=== PATIENT | female | born 1960 | race Caucasian/White ===

== ENCOUNTER 2017-12-23 17:55 | Inpatient (IN) | payer OTHER, MEDICARE ==
[~2017-12-23] VITALS: Ht 157.5 cm; Wt 58.5 kg
[2017-12-23] MEDS ORDERED: MORPHINE SULFATE 4 MG/ML VIAL. IV ONE ×2 (19:45→21:30)
[2017-12-23 20:00] LABS: CALCIUM 9.1 mg/dL (8.5-10.1); CREATININE 0.7 mg/dL (0.6-1.0); GFR 85.6; POTASSIUM 4.4 mmol/L (3.5-5.1)
[2017-12-23 20:05] LABS: ALBUMIN 4.1 g/dL (3.4-5.0); DIRECT BILIRUBIN 0.1 mg/dL (0.0-0.2); TOTAL BILIRUBIN 0.7 mg/dL (0.2-1.0); TOTAL PROTEIN 7.2 g/dL (6.4-8.2)
[2017-12-23] MEDS ORDERED: CONTRAST GIVEN. MC PRN (20:15)
[2017-12-23] MEDS ORDERED: IOHEXOL 300 MG/ML 100ML VIAL. IV ONE (20:30)
[2017-12-23 21:04] LABS: BASO # 0.1 x10^3/uL (0.0-0.2); BASO % 1 % (0-3); EOS # 0.1 x10^3/uL (0.0-0.7); EOS % 1 % (0-3); HEMATOCRIT 40.7 % (36.0-47.0); LYMPH # 2.7 x10^3/uL (1.0-4.8); LYMPH % 22 % (24-48); MEAN CORPUSCULAR HEMOGLOBIN 33 pg (25-35); MEAN CORPUSCULAR HGB CONC 35 g/dL (31-37); MEAN CORPUSCULAR VOLUME 96 fL (79-100); MONO # 0.9 x10^3/uL (0.0-1.1); MONO % 7 % (0-9); NEUT # 8.5 x10^3uL (1.8-7.7); NEUT % 70 % (31-73); PLATELET COUNT 256 x10^3/uL (140-400); RED BLOOD COUNT 4.26 x10^6/uL (3.50-5.40); RED CELL DISTRIBUTION WIDTH 13.5 % (11.5-14.5); WHITE BLOOD COUNT 12.2 x10^3/uL (4.0-11.0)
[2017-12-23 21:05] LABS: BILIRUBIN,URINE NEGATIVE (NEG); CLARITY,URINE CLEAR; COLOR,URINE YELLOW; NITRITE,URINE NEGATIVE (NEG); PH,URINE 6.5; PROTEIN,URINE NEGATIVE (NEG-TRACE); UROBILINOGEN,URINE 0.2 mg/dL (0.2 mg/dL)
--- NOTE | 2017-12-23 21:06 | RAD ---
PQRS Compliance statement: One or more of the following individualized dose reduction techniques were utilized for this examination: 1. Automated exposure control. 2. Adjustment of the mA and/or kV according to patient size. 3. Use of iterative reconstruction technique. Indication:severe upper abd pain since yesterday TECHNIQUE: CT abdomen and pelvis with IV contrast with multiplanar reformats. COMPARISON: None FINDINGS: Heart is normal in size. No pericardial or pleural effusion. Clear lung bases. Liver, spleen, gallbladder, pancreas, adrenals and kidneys are within normal limits. No retroperitoneal or pelvic adenopathy. Trace amount of free pelvic fluid. Diffusely dilated small bowel loops are seen with air-fluid levels. No pneumatosis intestinalis or pneumoperitoneum. No discrete transition point is seen. Anteverted uterus. Urinary bladder within normal limits. Distal colon is decompressed. No suspicious bony lesion. IMPRESSION: Diffusely dilated small bowel loops with air-fluid levels compatible with small bowel obstruction or ileus without discrete transition point. Electronically signed by: Antoni Casanova DO (12/23/2017 9:02 PM) [id number]
[2017-12-23 21:09] LABS: BACTERIA,URINE MOD /HPF (0-FEW); SQUAMOUS EPITHELIAL CELL,UR MOD /LPF
[2017-12-23 21:10] LABS: RBC,URINE OCC /HPF (0-2)
[2017-12-23] MEDS ORDERED: ONDANSETRON PF 4 MG/2 ML VIAL. IV PRN (21:45)
[2017-12-23] MEDS ORDERED: IV RINGERS,LACTATED 1000ML 1,000 ML IV ONE (21:45)
[2017-12-23] MEDS: MORPHINE SULFATE 10 MG/ML VIAL. IV PRN (23:08)
[2017-12-23 23:40] VITALS: BP 171/77
--- NOTE | 2017-12-23 23:41 | PHYS DOC ---
Past Medical History Past Medical History: Anxiety, Fibromyalgia Past Surgical History: Other Additional Past Surgical Histo: back Alcohol Use: Occasionally Drug Use: None Adult General Chief Complaint Chief Complaint: ABDOMINAL PAIN HPI HPI Patient is a 57 year old female who presents with abdominal pain. The patient complains of abdominal pain and some distention that started 2-3 days earlier. She describes that she felt a lot of bloating and diffuse abdominal pain. This was followed by multiple episodes of diarrhea which were described to brown and watery but nonbloody. Today, her diarrhea resolved and she did have a normal bowel movement. Overall, her pain symptoms have improved today and she did tolerate a very small amount of solid food. The patient is visiting this area from [facility]. She is scheduled to travel back home in the next couple of days. She primarily came to the ER to make sure she was safe to begin this journey. She has only a surgical history of hysterectomy 2 which was about 30 years earlier. Review of Systems Review of Systems Constitutional: Denies fever or chills Eyes: Denies change in visual acuity HENT: Denies nasal congestion Respiratory: Denies cough or shortness of breath Cardiovascular: No additional information not addressed in HPI GI: as documented above : Denies dysuria or hematuria Musculoskeletal: Denies back pain Integument: Denies rash or skin lesions Neurologic: Denies headache, focal weakness Endocrine: Denies polyuria or polydipsia All other systems were reviewed and found to be within normal limits, except as documented in this note. Current Medications Current Medications Current Medications Medications (Trade) Dose Ordered Sig/Avelina Start Time Stop Time Status Last Admin Dose Admin Info (CONTRAST GIVEN -- Rx MONITORING) 1 each PRN DAILY PRN 12/23/17 20:15 12/25/17 20:14 Iohexol (Omnipaque 300 Mg/ml) 75 ml 1X ONCE 12/23/17 20:30 12/23/17 20:31 DC 12/23/17 20:31 75 ML Morphine Sulfate (Morphine Sulfate) 4 mg 1X ONCE 12/23/17 21:30 12/23/17 21:31 DC 12/23/17 21:17 4 MG Allergies Allergies Allergies Coded Allergies Type Severity Reaction Last Updated Verified codeine Allergy Intermediate Nausea 12/23/17 Yes Physical Exam Physical Exam Constitutional: Well developed, well nourished, no acute distress, non-toxic HENT: Normocephalic, atraumatic, bilateral external ears normal, oropharynx moist Eyes: PERRLA, EOMI, conjunctiva normal Neck: Normal range of motion Cardiovascular:Heart rate regular rhythm, no murmur Lungs & Thorax: Bilateral breath sounds clear to auscultation Abdomen: abdomen is mildly distended and diffusely TTP but no guarding or rebound tenderness Skin: Warm, dry, no erythema Back: No tenderness, no CVA tenderness Extremities: No edema Neurologic: Alert and oriented X 3 Psychologic: Affect normal Current Patient Data Vital Signs Vital Signs Date Time Temp Pulse Resp B/P (MAP) Pulse Ox O2 Delivery O2 Flow Rate FiO2 12/23/17 21:17 18 98 Room Air 12/23/17 20:05 87 167/92 (117) 12/23/17 19:06 98.4 98.4 Lab Values Laboratory Tests Test 12/23/17 19:01 12/23/17 19:35 Urine Collection Type Unknown Urine Color Yellow Urine Clarity Clear Urine pH 6.5 Urine Specific [place] 1.010 Urine Protein Negative mg/dL (NEG-TRACE) Urine Glucose (UA) Negative mg/dL (NEG) Urine Ketones (Stick) Negative mg/dL (NEG) Urine Blood Trace (NEG) Urine Nitrite Negative (NEG) Urine Bilirubin Negative (NEG) Urine Urobilinogen Dipstick 0.2 mg/dL (0.2 mg/dL) Urine Leukocyte Esterase Small (NEG) Urine RBC Occ /HPF (0-2) Urine WBC 1-4 /HPF (0-4) Urine Squamous Epithelial Cells Mod /LPF Urine Bacteria Mod /HPF (0-FEW) White Blood Count 12.2 x10^3/uL (4.0-11.0) H Red Blood Count 4.26 x10^6/uL (3.50-5.40) Hemoglobin 14.0 g/dL (12.0-15.5) Hematocrit 40.7 % (36.0-47.0) Mean Corpuscular Volume 96 fL (79-100) Mean Corpuscular Hemoglobin 33 pg (25-35) Mean Corpuscular Hemoglobin Concent 35 g/dL (31-37) Red Cell Distribution Width 13.5 % (11.5-14.5) Platelet Count 256 x10^3/uL (140-400) Neutrophils (%) (Auto) 70 % (31-73) Lymphocytes (%) (Auto) 22 % (24-48) L Monocytes (%) (Auto) 7 % (0-9) Eosinophils (%) (Auto) 1 % (0-3) Basophils (%) (Auto) 1 % (0-3) Neutrophils # (Auto) 8.5 x10^3uL (1.8-7.7) H Lymphocytes # (Auto) 2.7 x10^3/uL (1.0-4.8) Monocytes # (Auto) 0.9 x10^3/uL (0.0-1.1) Eosinophils # (Auto) 0.1 x10^3/uL (0.0-0.7) Basophils # (Auto) 0.1 x10^3/uL (0.0-0.2) Sodium Level 134 mmol/L (136-145) L Potassium Level 4.4 mmol/L (3.5-5.1) Chloride Level 102 mmol/L (98-107) Carbon Dioxide Level 25 mmol/L (21-32) Anion Gap 7 (6-14) Blood Urea Nitrogen 16 mg/dL (7-20) Creatinine 0.7 mg/dL (0.6-1.0) Estimated GFR (Cockcroft-Gault) 85.6 Glucose Level 100 mg/dL (70-99) H Calcium Level 9.1 mg/dL (8.5-10.1) Total Bilirubin 0.7 mg/dL (0.2-1.0) Direct Bilirubin 0.1 mg/dL (0.0-0.2) Aspartate Amino Transferase (AST) 14 U/L (15-37) L Alanine Aminotransferase (ALT) 19 U/L (14-59) Alkaline Phosphatase 55 U/L (46-116) Total Protein 7.2 g/dL (6.4-8.2) Albumin 4.1 g/dL (3.4-5.0) Lipase 104 U/L (73-393) Laboratory Tests 12/23/17 19:35 Laboratory Tests 12/23/17 19:35 EKG EKG [] Radiology/Procedures Radiology/Procedures FINDINGS: Heart is normal in size. No pericardial or pleural effusion. Clear lung bases. Liver, spleen, gallbladder, pancreas, adrenals and kidneys are within normal limits. No retroperitoneal or pelvic adenopathy. Trace amount of free pelvic fluid. Diffusely dilated small bowel loops are seen with air-fluid levels. No pneumatosis intestinalis or pneumoperitoneum. No discrete transition point is seen. Anteverted uterus. Urinary bladder within normal limits. Distal colon is decompressed. No suspicious bony lesion. IMPRESSION: Diffusely dilated small bowel loops with air-fluid levels compatible with small bowel obstruction or ileus without discrete transition point. Course & Med Decision Making Course & Med Decision Making Pertinent Labs and Imaging studies reviewed. (See chart for details) Patient is evaluated in the emergency department for abdominal pain. Her history of present illness and presentation are suspicious for bowel obstruction. Standard abdominal pain workup is ordered including CT scan. 22:00: CT scan is returned and verifies suspected diagnosis. The patient has had no vomiting or severe symptoms during the ED course. No NG tube is placed for this reason. Plan will be to admit the patient and keep her as in by mouth status. IV fluids are started. Bridge orders are placed. Consult for GI is also placed. The patient at this time does not have a surgical abdomen. All results are reviewed and discussed with the patient and all of her questions are answered. She is agreeable to the plan of care. I did also discuss this patient with Dr. Eaton who was agreeable to admission. Dragon Disclaimer Dragon Disclaimer This electronic medical record was generated, in whole or in part, using a voice recognition dictation system. Departure Departure Referrals: UNKNOWN PCP NAME (PCP) SAIMA LEE DO Dec 23, 2017 23:41
[2017-12-24] MEDS ORDERED: ALPR1TAB6 PO (00:59)
[2017-12-24 03:00] VITALS: BP 150/79
[2017-12-24] MEDS: MORPHINE SULFATE 10 MG/ML VIAL. IV PRN ×2 (03:23→06:01)
[2017-12-24 04:10] LABS: BASO % 0 % (0-3); EOS # 0.1 x10^3/uL (0.0-0.7); EOS % 2 % (0-3); HEMATOCRIT 35.7 % (36.0-47.0); HEMOGLOBIN 12.5 g/dL (12.0-15.5); LYMPH # 2.2 x10^3/uL (1.0-4.8); LYMPH % 28 % (24-48); MEAN CORPUSCULAR HEMOGLOBIN 33 pg (25-35); MEAN CORPUSCULAR HGB CONC 35 g/dL (31-37); MEAN CORPUSCULAR VOLUME 95 fL (79-100); MONO # 0.5 x10^3/uL (0.0-1.1); MONO % 6 % (0-9); NEUT # 5.2 x10^3uL (1.8-7.7); NEUT % 64 % (31-73); PLATELET COUNT 202 x10^3/uL (140-400); RED BLOOD COUNT 3.76 x10^6/uL (3.50-5.40); RED CELL DISTRIBUTION WIDTH 13.5 % (11.5-14.5)
[2017-12-24 04:30] LABS: ALBUMIN 3.4 g/dL (3.4-5.0); ALBUMIN/GLOBULIN RATIO 1.2 (1.0-1.7); CALCIUM 8.1 mg/dL (8.5-10.1); CREATININE 0.7 mg/dL (0.6-1.0); GFR 85.6; POTASSIUM 3.9 mmol/L (3.5-5.1); TOTAL BILIRUBIN 0.6 mg/dL (0.2-1.0); TOTAL PROTEIN 6.2 g/dL (6.4-8.2)
[2017-12-24 07:00] VITALS: BP 134/70
--- NOTE | 2017-12-24 09:15 | PDOC2 ---
GI CONSULT Reason For Consult: SBO HPI: HPI: 57 y/o female from [facility], traveled to [place] to visit [id number], then traveled to area to visit nephew. While in [place] on Friday, awoke during the night, noted abd bloating/firmness. Later that day had watery diarrhea and took Imodium. Then had lower abdominal pain that radiated upwards. Pain persisted. Then had a normal stool yesterday before coming to the ER. Wants to make sure she's safe to travel back to [place] on Friday. Since admission, has been passing gas and pain/bloating has improved. No n/v, dysphagia, reflux/ heartburn, hematochezia, melena, or weight loss. Denies ingestion of questionable food or sick contacts. No fevers/chills/sweats. No previous EGD. Has had two colonoscopies - the first w/ pre-cancerous polyps, the second (~2 years ago) without. No GB or pancreas history. No h/o obstruction. Was told at one point had Hep C, then had further investigation at and was told she didn't have Hep C - says has also been checked since then w/ negative results. CT shows SBO vs ileus. PMH: PMH: anxiety, fibromyalgia, colon polyps, cervical fusion, x 2 FH: Family History: Cancer (brother - colon, sister - cervical) Social History: Smoke: <1 pack per day ALCOHOL: other (on vacations) Drugs: None ROS: GEN: Denies fevers, chills, sweats HEENT: Denies blurred vision, sore throat CV: Denies chest pain RESP: Denies shortness of air, cough GI: Per HPI : Denies hematuria, dysuria ENDO: Denies weight changes NEURO: Denies confusion, dizziness MSK: Denies weakness, joint pain/swelling SKIN: Denies jaundice, pruritus Vitals: Vitals: Vital Signs Date Time Temp Pulse Resp B/P (MAP) Pulse Ox O2 Delivery O2 Flow Rate FiO2 12/24/17 07:28 16 96 Room Air 12/24/17 07:00 98.7 68 134/70 (91) 98.7 Labs: Labs: Laboratory Tests Test 12/23/17 19:01 12/23/17 19:35 12/24/17 03:00 Urine Collection Type Unknown Urine Color Yellow Urine Clarity Clear Urine pH 6.5 Urine Specific [place] 1.010 Urine Protein Negative mg/dL (NEG-TRACE) Urine Glucose (UA) Negative mg/dL (NEG) Urine Ketones (Stick) Negative mg/dL (NEG) Urine Blood Trace (NEG) Urine Nitrite Negative (NEG) Urine Bilirubin Negative (NEG) Urine Urobilinogen Dipstick 0.2 mg/dL (0.2 mg/dL) Urine Leukocyte Esterase Small (NEG) Urine RBC Occ /HPF (0-2) Urine WBC 1-4 /HPF (0-4) Urine Squamous Epithelial Cells Mod /LPF Urine Bacteria Mod /HPF (0-FEW) White Blood Count 12.2 x10^3/uL (4.0-11.0) 8.0 x10^3/uL (4.0-11.0) Red Blood Count 4.26 x10^6/uL (3.50-5.40) 3.76 x10^6/uL (3.50-5.40) Hemoglobin 14.0 g/dL (12.0-15.5) 12.5 g/dL (12.0-15.5) Hematocrit 40.7 % (36.0-47.0) 35.7 % (36.0-47.0) Mean Corpuscular Volume 96 fL (79-100) 95 fL (79-100) Mean Corpuscular Hemoglobin 33 pg (25-35) 33 pg (25-35) Mean Corpuscular Hemoglobin Concent 35 g/dL (31-37) 35 g/dL (31-37) Red Cell Distribution Width 13.5 % (11.5-14.5) 13.5 % (11.5-14.5) Platelet Count 256 x10^3/uL (140-400) 202 x10^3/uL (140-400) Neutrophils (%) (Auto) 70 % (31-73) 64 % (31-73) Lymphocytes (%) (Auto) 22 % (24-48) 28 % (24-48) Monocytes (%) (Auto) 7 % (0-9) 6 % (0-9) Eosinophils (%) (Auto) 1 % (0-3) 2 % (0-3) Basophils (%) (Auto) 1 % (0-3) 0 % (0-3) Neutrophils # (Auto) 8.5 x10^3uL (1.8-7.7) 5.2 x10^3uL (1.8-7.7) Lymphocytes # (Auto) 2.7 x10^3/uL (1.0-4.8) 2.2 x10^3/uL (1.0-4.8) Monocytes # (Auto) 0.9 x10^3/uL (0.0-1.1) 0.5 x10^3/uL (0.0-1.1) Eosinophils # (Auto) 0.1 x10^3/uL (0.0-0.7) 0.1 x10^3/uL (0.0-0.7) Basophils # (Auto) 0.1 x10^3/uL (0.0-0.2) 0.0 x10^3/uL (0.0-0.2) Sodium Level 134 mmol/L (136-145) 139 mmol/L (136-145) Potassium Level 4.4 mmol/L (3.5-5.1) 3.9 mmol/L (3.5-5.1) Chloride Level 102 mmol/L (98-107) 106 mmol/L (98-107) Carbon Dioxide Level 25 mmol/L (21-32) 27 mmol/L (21-32) Anion Gap 7 (6-14) 6 (6-14) Blood Urea Nitrogen 16 mg/dL (7-20) 13 mg/dL (7-20) Creatinine 0.7 mg/dL (0.6-1.0) 0.7 mg/dL (0.6-1.0) Estimated GFR (Cockcroft-Gault) 85.6 85.6 Glucose Level 100 mg/dL (70-99) 95 mg/dL (70-99) Calcium Level 9.1 mg/dL (8.5-10.1) 8.1 mg/dL (8.5-10.1) Total Bilirubin 0.7 mg/dL (0.2-1.0) 0.6 mg/dL (0.2-1.0) Direct Bilirubin 0.1 mg/dL (0.0-0.2) Aspartate Amino Transf (AST/SGOT) 14 U/L (15-37) 7 U/L (15-37) Alanine Aminotransferase (ALT/SGPT) 19 U/L (14-59) 14 U/L (14-59) Alkaline Phosphatase 55 U/L (46-116) 48 U/L (46-116) Total Protein 7.2 g/dL (6.4-8.2) 6.2 g/dL (6.4-8.2) Albumin 4.1 g/dL (3.4-5.0) 3.4 g/dL (3.4-5.0) Lipase 104 U/L (73-393) BUN/Creatinine Ratio 19 (6-20) Albumin/Globulin Ratio 1.2 (1.0-1.7) Allergies: Coded Allergies: codeine (Verified Allergy, Intermediate, Nausea, 12/23/17) Medications: Current Medications Medications (Trade) Dose Ordered Sig/Avelina Route PRN Reason Start Time Stop Time Status Last Admin Dose Admin Morphine Sulfate (Morphine Sulfate) 4 mg 1X ONCE IV 12/23/17 19:45 12/23/17 19:46 DC 12/23/17 20:01 Iohexol (Omnipaque 300 Mg/ml) 75 ml 1X ONCE IV 12/23/17 20:30 12/23/17 20:31 DC 12/23/17 20:31 Morphine Sulfate (Morphine Sulfate) 4 mg 1X ONCE IV 12/23/17 21:30 12/23/17 21:31 DC 12/23/17 21:17 Ondansetron HCl (Zofran) 4 mg PRN Q8HRS PRN IV NAUSEA/VOMITING 12/23/17 21:45 12/24/17 21:44 12/23/17 23:07 Morphine Sulfate (Morphine Sulfate) 6 mg PRN Q2HR PRN IV PAIN 12/23/17 21:45 12/24/17 21:44 12/24/17 06:01 Ringer's Solution 1,000 ml @ 100 mls/hr 1X ONCE IV 12/23/17 21:45 12/24/17 07:44 DC 12/23/17 23:07 Imaging: Imaging: CT A/P w/ IV contrast IMPRESSION: Diffusely dilated small bowel loops with air-fluid levels compatible with small bowel obstruction or ileus without discrete transition point. PE: GEN: NAD HEENT: Atraumatic, PERRL LUNGS: CTAB HEART: RRR ABD: BS+ but quiet, soft, non-tender, does not seem distended EXTREMITY: No edema SKIN: No rashes, no jaundice NEURO/PSYCH: A & O 3 A/P: A/P: Abd bloating/pain - improved Diarrhea - resolved, normal stool yesterday evening Abnormal CT - SBO vs ileus CRC screen, h/o colon polyps, FH colon cancer - UTD -- H/o previous abd surgeries, adhesions possible. Okay for ice chips. Clinically improved. Check abd x-ray. If unrevealing, try diet. Check Hep C for completeness. HUANG BARROSO Dec 24, 2017 09:15
[2017-12-24 11:00] VITALS: BP 128/68
--- NOTE | 2017-12-24 13:08 | PDOC1 ---
History and Physical Date of Admission Date of Admission DATE: 12/24/17 TIME: 13:02 Identification/Chief Complaint Chief Complaint Abdominal pain Source Source: Caregiver, Chart review, Patient History of Present Illness History of Present Illness 57-year-old female who is just visiting from [place], few days onset abdominal pain epigastric periumbilical area, some nausea but no emesis but did report loose stools, no fever, nontoxic-appearing. She reports mostly abdominal bloating or firmness. She took Imodium because of her loose stools and she claims she feels worse after she took Imodium. She was worried that something more is going on and she does not want something bad to happen during her visit here hence decided to check herself in. At [facility], ileus versus mild SBO hence transferred here. Patient is nontoxic appearing, belly is soft no guarding but some voluntary tenderness or guarding on my epigastric palpation. GI has seen. Supportive care , will wait for GI M.D. to round later. Otherwise history of diverticulitis? Previous EGDs, has had 2 colonoscopies, first precancerous polyps? About 2 years ago. She is wondering if it's safe for her to travel back to [place] on Friday. Hepatitis panel has been checked and is negative at [facility]. CAT scan of the abdomen pelvis shows mild ileus versus mild SBO or partial SBO Past Medical History Cardiovascular: HTN Past Surgical History Past Surgical History: No pertinent history Family History Family History: Hypertension Social History Smoke: <1 pack per day ALCOHOL: none Drugs: None Current Problem List Problem List Problems Medical Problems: (1) Small bowel obstruction Status: Acute Current Medications Current Medications Current Medications Morphine Sulfate (Morphine Sulfate) 4 mg 1X ONCE IV Last administered on at 20:01; Start 12/23/17 at 19:45; Stop 12/23/17 at 19:46; Status DC Iohexol (Omnipaque 300 Mg/ml) 75 ml 1X ONCE IV Last administered on 12/23/17at 20:31; Start 12/23/17 at 20:30; Stop 12/23/17 at 20:31; Status DC Info (CONTRAST GIVEN -- Rx MONITORING) 1 each PRN DAILY PRN MC SEE COMMENTS; Start 12/23/17 at 20:15; Stop 12/25/17 at 20:14 Morphine Sulfate (Morphine Sulfate) 4 mg 1X ONCE IV Last administered on at 21:17; Start 12/23/17 at 21:30; Stop 12/23/17 at 21:31; Status DC Ondansetron HCl (Zofran) 4 mg PRN Q8HRS PRN IV NAUSEA/VOMITING Last administered on 12/23/17at 23:07; Start 12/23/17 at 21:45; Stop 12/24/17 at 21:44 Morphine Sulfate (Morphine Sulfate) 6 mg PRN Q2HR PRN IV PAIN Last administered on 12/24/17at 06:01; Start 12/23/17 at 21:45; Stop 12/24/17 at 21:44 Ringer's Solution 1,000 ml @ 100 mls/hr 1X ONCE IV Last administered on at 23:07; Start 12/23/17 at 21:45; Stop 12/24/17 at 07:44; Status DC Active Scripts Active Reported Alprazolam 1 Mg Tablet 1 Tab PO BID Allergies Allergies: Coded Allergies: codeine (Verified Allergy, Intermediate, Nausea, 12/23/17) ROS Review of System As per history of present illness, the rest of ROS 14 point negative Physical Exam General: Alert, Oriented X3, Cooperative, No acute distress HEENT: Atraumatic, PERRLA Lungs: Clear to auscultation, Normal air movement Heart: S1S2, RRR, no thrills, no rubs, no gallops, no murmurs Cardiovascular: S1, S2 Breasts: Normal, Rt breast nml w/o mass, Lt breast nml w/o mass, Nipples normal Abdomen: Normal bowel sounds, Soft, No hepatosplenomegaly, No masses, Other ( some tenderness epigastric area but no guarding) Rectal Exam: not examined PELVIC: Nml ext genitalia Extremities: No clubbing, No cyanosis, No edema, Normal pulses, No tenderness/ swelling Skin: No rashes, No breakdown, No significant lesion Neuro: Normal gait, Normal speech, Strength at 5/5 X4 ext, Normal tone, Sensation intact, Cranial nerves 3-12 NL, Reflexes 2+ Psych/Mental Status: Mental status NL, Mood NL Vitals Vitals Vital Signs Date Time Temp Pulse Resp B/P (MAP) Pulse Ox O2 Delivery O2 Flow Rate FiO2 8/15/18 11:00 98.6 72 18 128/68 (88) 96 Room Air 98.6 Labs Labs Laboratory Tests Test 12/23/17 19:01 12/23/17 19:35 12/24/17 03:00 Urine Collection Type Unknown Urine Color Yellow Urine Clarity Clear Urine pH 6.5 Urine Specific [place] 1.010 Urine Protein Negative mg/dL (NEG-TRACE) Urine Glucose (UA) Negative mg/dL (NEG) Urine Ketones (Stick) Negative mg/dL (NEG) Urine Blood Trace (NEG) Urine Nitrite Negative (NEG) Urine Bilirubin Negative (NEG) Urine Urobilinogen Dipstick 0.2 mg/dL (0.2 mg/dL) Urine Leukocyte Esterase Small (NEG) Urine RBC Occ /HPF (0-2) Urine WBC 1-4 /HPF (0-4) Urine Squamous Epithelial Cells Mod /LPF Urine Bacteria Mod /HPF (0-FEW) White Blood Count 12.2 x10^3/uL (4.0-11.0) 8.0 x10^3/uL (4.0-11.0) Red Blood Count 4.26 x10^6/uL (3.50-5.40) 3.76 x10^6/uL (3.50-5.40) Hemoglobin 14.0 g/dL (12.0-15.5) 12.5 g/dL (12.0-15.5) Hematocrit 40.7 % (36.0-47.0) 35.7 % (36.0-47.0) Mean Corpuscular Volume 96 fL (79-100) 95 fL (79-100) Mean Corpuscular Hemoglobin 33 pg (25-35) 33 pg (25-35) Mean Corpuscular Hemoglobin Concent 35 g/dL (31-37) 35 g/dL (31-37) Red Cell Distribution Width 13.5 % (11.5-14.5) 13.5 % (11.5-14.5) Platelet Count 256 x10^3/uL (140-400) 202 x10^3/uL (140-400) Neutrophils (%) (Auto) 70 % (31-73) 64 % (31-73) Lymphocytes (%) (Auto) 22 % (24-48) 28 % (24-48) Monocytes (%) (Auto) 7 % (0-9) 6 % (0-9) Eosinophils (%) (Auto) 1 % (0-3) 2 % (0-3) Basophils (%) (Auto) 1 % (0-3) 0 % (0-3) Neutrophils # (Auto) 8.5 x10^3uL (1.8-7.7) 5.2 x10^3uL (1.8-7.7) Lymphocytes # (Auto) 2.7 x10^3/uL (1.0-4.8) 2.2 x10^3/uL (1.0-4.8) Monocytes # (Auto) 0.9 x10^3/uL (0.0-1.1) 0.5 x10^3/uL (0.0-1.1) Eosinophils # (Auto) 0.1 x10^3/uL (0.0-0.7) 0.1 x10^3/uL (0.0-0.7) Basophils # (Auto) 0.1 x10^3/uL (0.0-0.2) 0.0 x10^3/uL (0.0-0.2) Sodium Level 134 mmol/L (136-145) 139 mmol/L (136-145) Potassium Level 4.4 mmol/L (3.5-5.1) 3.9 mmol/L (3.5-5.1) Chloride Level 102 mmol/L (98-107) 106 mmol/L (98-107) Carbon Dioxide Level 25 mmol/L (21-32) 27 mmol/L (21-32) Anion Gap 7 (6-14) 6 (6-14) Blood Urea Nitrogen 16 mg/dL (7-20) 13 mg/dL (7-20) Creatinine 0.7 mg/dL (0.6-1.0) 0.7 mg/dL (0.6-1.0) Estimated GFR (Cockcroft-Gault) 85.6 85.6 Glucose Level 100 mg/dL (70-99) 95 mg/dL (70-99) Calcium Level 9.1 mg/dL (8.5-10.1) 8.1 mg/dL (8.5-10.1) Total Bilirubin 0.7 mg/dL (0.2-1.0) 0.6 mg/dL (0.2-1.0) Direct Bilirubin 0.1 mg/dL (0.0-0.2) Aspartate Amino Transf (AST/SGOT) 14 U/L (15-37) 7 U/L (15-37) Alanine Aminotransferase (ALT/SGPT) 19 U/L (14-59) 14 U/L (14-59) Alkaline Phosphatase 55 U/L (46-116) 48 U/L (46-116) Total Protein 7.2 g/dL (6.4-8.2) 6.2 g/dL (6.4-8.2) Albumin 4.1 g/dL (3.4-5.0) 3.4 g/dL (3.4-5.0) Lipase 104 U/L (73-393) BUN/Creatinine Ratio 19 (6-20) Albumin/Globulin Ratio 1.2 (1.0-1.7) Hepatitis C IgG Antibody Reactive (Nonreactive) Laboratory Tests Test 12/23/17 19:01 12/23/17 19:35 12/24/17 03:00 Urine Collection Type Unknown Urine Color Yellow Urine Clarity Clear Urine pH 6.5 Urine Specific [place] 1.010 Urine Protein Negative mg/dL (NEG-TRACE) Urine Glucose (UA) Negative mg/dL (NEG) Urine Ketones (Stick) Negative mg/dL (NEG) Urine Blood Trace (NEG) Urine Nitrite Negative (NEG) Urine Bilirubin Negative (NEG) Urine Urobilinogen Dipstick 0.2 mg/dL (0.2 mg/dL) Urine Leukocyte Esterase Small (NEG) Urine RBC Occ /HPF (0-2) Urine WBC 1-4 /HPF (0-4) Urine Squamous Epithelial Cells Mod /LPF Urine Bacteria Mod /HPF (0-FEW) White Blood Count 12.2 x10^3/uL (4.0-11.0) 8.0 x10^3/uL (4.0-11.0) Red Blood Count 4.26 x10^6/uL (3.50-5.40) 3.76 x10^6/uL (3.50-5.40) Hemoglobin 14.0 g/dL (12.0-15.5) 12.5 g/dL (12.0-15.5) Hematocrit 40.7 % (36.0-47.0) 35.7 % (36.0-47.0) Mean Corpuscular Volume 96 fL (79-100) 95 fL (79-100) Mean Corpuscular Hemoglobin 33 pg (25-35) 33 pg (25-35) Mean Corpuscular Hemoglobin Concent 35 g/dL (31-37) 35 g/dL (31-37) Red Cell Distribution Width 13.5 % (11.5-14.5) 13.5 % (11.5-14.5) Platelet Count 256 x10^3/uL (140-400) 202 x10^3/uL (140-400) Neutrophils (%) (Auto) 70 % (31-73) 64 % (31-73) Lymphocytes (%) (Auto) 22 % (24-48) 28 % (24-48) Monocytes (%) (Auto) 7 % (0-9) 6 % (0-9) Eosinophils (%) (Auto) 1 % (0-3) 2 % (0-3) Basophils (%) (Auto) 1 % (0-3) 0 % (0-3) Neutrophils # (Auto) 8.5 x10^3uL (1.8-7.7) 5.2 x10^3uL (1.8-7.7) Lymphocytes # (Auto) 2.7 x10^3/uL (1.0-4.8) 2.2 x10^3/uL (1.0-4.8) Monocytes # (Auto) 0.9 x10^3/uL (0.0-1.1) 0.5 x10^3/uL (0.0-1.1) Eosinophils # (Auto) 0.1 x10^3/uL (0.0-0.7) 0.1 x10^3/uL (0.0-0.7) Basophils # (Auto) 0.1 x10^3/uL (0.0-0.2) 0.0 x10^3/uL (0.0-0.2) Sodium Level 134 mmol/L (136-145) 139 mmol/L (136-145) Potassium Level 4.4 mmol/L (3.5-5.1) 3.9 mmol/L (3.5-5.1) Chloride Level 102 mmol/L (98-107) 106 mmol/L (98-107) Carbon Dioxide Level 25 mmol/L (21-32) 27 mmol/L (21-32) Anion Gap 7 (6-14) 6 (6-14) Blood Urea Nitrogen 16 mg/dL (7-20) 13 mg/dL (7-20) Creatinine 0.7 mg/dL (0.6-1.0) 0.7 mg/dL (0.6-1.0) Estimated GFR (Cockcroft-Gault) 85.6 85.6 Glucose Level 100 mg/dL (70-99) 95 mg/dL (70-99) Calcium Level 9.1 mg/dL (8.5-10.1) 8.1 mg/dL (8.5-10.1) Total Bilirubin 0.7 mg/dL (0.2-1.0) 0.6 mg/dL (0.2-1.0) Direct Bilirubin 0.1 mg/dL (0.0-0.2) Aspartate Amino Transf (AST/SGOT) 14 U/L (15-37) 7 U/L (15-37) Alanine Aminotransferase (ALT/SGPT) 19 U/L (14-59) 14 U/L (14-59) Alkaline Phosphatase 55 U/L (46-116) 48 U/L (46-116) Total Protein 7.2 g/dL (6.4-8.2) 6.2 g/dL (6.4-8.2) Albumin 4.1 g/dL (3.4-5.0) 3.4 g/dL (3.4-5.0) Lipase 104 U/L (73-393) BUN/Creatinine Ratio 19 (6-20) Albumin/Globulin Ratio 1.2 (1.0-1.7) Hepatitis C IgG Antibody Reactive (Nonreactive) VTE Prophylaxis Ordered VTE Prophylaxis Devices: Yes VTE Pharmacological Prophylaxi: Yes Assessment/Plan Assessment/Plan Likely viral gastroenteritis Ileus versus mild partial SBO Anxiety NOS Plan: GI consulted, awaiting acute abdominal series-if that is normal then can start some diet Home meds have been reconciled Supportive care Lots of education today with her, lots of questions, signif time in room with her Did try to answer to my best of capabilities Appreciate GI She requests some xanax Discussed with RACHANA IZQUIERDO MD Dec 24, 2017 13:08
[2017-12-24] MEDS ORDERED: ALPRAZolam 1 MG TABLET PO SCH (14:00)
[2017-12-24 15:00] VITALS: BP 132/62
--- NOTE | 2017-12-24 16:00 | PDOC3 ---
Discharge Summary Visit Information Date of Admission: Dec 23, 2017 Date of Discharge: Dec 24, 2017 Admitting Diagnosis Comment: Likely viral gastroenteritis Ileus versus mild partial SBO Anxiety NOS Final Diagnosis Problems Medical Problems: (1) Small bowel obstruction Status: Acute Brief Hospital Course Allergies Allergies Coded Allergies Type Severity Reaction Last Updated Verified codeine Allergy Intermediate Nausea 12/23/17 Yes Vital Signs Vital Signs Date Time Temp Pulse Resp B/P (MAP) Pulse Ox O2 Delivery O2 Flow Rate FiO2 12/24/17 11:00 98.6 72 18 128/68 (88) 96 Room Air 98.6 Lab Results Laboratory Tests Test 12/23/17 19:01 12/23/17 19:35 12/24/17 03:00 Urine Collection Type Unknown Urine Color Yellow Urine Clarity Clear Urine pH 6.5 Urine Specific [place] 1.010 Urine Protein Negative mg/dL (NEG-TRACE) Urine Glucose (UA) Negative mg/dL (NEG) Urine Ketones (Stick) Negative mg/dL (NEG) Urine Blood Trace (NEG) Urine Nitrite Negative (NEG) Urine Bilirubin Negative (NEG) Urine Urobilinogen Dipstick 0.2 mg/dL (0.2 mg/dL) Urine Leukocyte Esterase Small (NEG) Urine RBC Occ /HPF (0-2) Urine WBC 1-4 /HPF (0-4) Urine Squamous Epithelial Cells Mod /LPF Urine Bacteria Mod /HPF (0-FEW) White Blood Count 12.2 x10^3/uL (4.0-11.0) 8.0 x10^3/uL (4.0-11.0) Red Blood Count 4.26 x10^6/uL (3.50-5.40) 3.76 x10^6/uL (3.50-5.40) Hemoglobin 14.0 g/dL (12.0-15.5) 12.5 g/dL (12.0-15.5) Hematocrit 40.7 % (36.0-47.0) 35.7 % (36.0-47.0) Mean Corpuscular Volume 96 fL (79-100) 95 fL (79-100) Mean Corpuscular Hemoglobin 33 pg (25-35) 33 pg (25-35) Mean Corpuscular Hemoglobin Concent 35 g/dL (31-37) 35 g/dL (31-37) Red Cell Distribution Width 13.5 % (11.5-14.5) 13.5 % (11.5-14.5) Platelet Count 256 x10^3/uL (140-400) 202 x10^3/uL (140-400) Neutrophils (%) (Auto) 70 % (31-73) 64 % (31-73) Lymphocytes (%) (Auto) 22 % (24-48) 28 % (24-48) Monocytes (%) (Auto) 7 % (0-9) 6 % (0-9) Eosinophils (%) (Auto) 1 % (0-3) 2 % (0-3) Basophils (%) (Auto) 1 % (0-3) 0 % (0-3) Neutrophils # (Auto) 8.5 x10^3uL (1.8-7.7) 5.2 x10^3uL (1.8-7.7) Lymphocytes # (Auto) 2.7 x10^3/uL (1.0-4.8) 2.2 x10^3/uL (1.0-4.8) Monocytes # (Auto) 0.9 x10^3/uL (0.0-1.1) 0.5 x10^3/uL (0.0-1.1) Eosinophils # (Auto) 0.1 x10^3/uL (0.0-0.7) 0.1 x10^3/uL (0.0-0.7) Basophils # (Auto) 0.1 x10^3/uL (0.0-0.2) 0.0 x10^3/uL (0.0-0.2) Sodium Level 134 mmol/L (136-145) 139 mmol/L (136-145) Potassium Level 4.4 mmol/L (3.5-5.1) 3.9 mmol/L (3.5-5.1) Chloride Level 102 mmol/L (98-107) 106 mmol/L (98-107) Carbon Dioxide Level 25 mmol/L (21-32) 27 mmol/L (21-32) Anion Gap 7 (6-14) 6 (6-14) Blood Urea Nitrogen 16 mg/dL (7-20) 13 mg/dL (7-20) Creatinine 0.7 mg/dL (0.6-1.0) 0.7 mg/dL (0.6-1.0) Estimated GFR (Cockcroft-Gault) 85.6 85.6 Glucose Level 100 mg/dL (70-99) 95 mg/dL (70-99) Calcium Level 9.1 mg/dL (8.5-10.1) 8.1 mg/dL (8.5-10.1) Total Bilirubin 0.7 mg/dL (0.2-1.0) 0.6 mg/dL (0.2-1.0) Direct Bilirubin 0.1 mg/dL (0.0-0.2) Aspartate Amino Transf (AST/SGOT) 14 U/L (15-37) 7 U/L (15-37) Alanine Aminotransferase (ALT/SGPT) 19 U/L (14-59) 14 U/L (14-59) Alkaline Phosphatase 55 U/L (46-116) 48 U/L (46-116) Total Protein 7.2 g/dL (6.4-8.2) 6.2 g/dL (6.4-8.2) Albumin 4.1 g/dL (3.4-5.0) 3.4 g/dL (3.4-5.0) Lipase 104 U/L (73-393) BUN/Creatinine Ratio 19 (6-20) Albumin/Globulin Ratio 1.2 (1.0-1.7) Hepatitis C IgG Antibody Reactive (Nonreactive) Laboratory Tests Test 12/23/17 19:01 12/23/17 19:35 12/24/17 03:00 Urine Collection Type Unknown Urine Color Yellow Urine Clarity Clear Urine pH 6.5 Urine Specific [place] 1.010 Urine Protein Negative mg/dL (NEG-TRACE) Urine Glucose (UA) Negative mg/dL (NEG) Urine Ketones (Stick) Negative mg/dL (NEG) Urine Blood Trace (NEG) Urine Nitrite Negative (NEG) Urine Bilirubin Negative (NEG) Urine Urobilinogen Dipstick 0.2 mg/dL (0.2 mg/dL) Urine Leukocyte Esterase Small (NEG) Urine RBC Occ /HPF (0-2) Urine WBC 1-4 /HPF (0-4) Urine Squamous Epithelial Cells Mod /LPF Urine Bacteria Mod /HPF (0-FEW) White Blood Count 12.2 x10^3/uL (4.0-11.0) 8.0 x10^3/uL (4.0-11.0) Red Blood Count 4.26 x10^6/uL (3.50-5.40) 3.76 x10^6/uL (3.50-5.40) Hemoglobin 14.0 g/dL (12.0-15.5) 12.5 g/dL (12.0-15.5) Hematocrit 40.7 % (36.0-47.0) 35.7 % (36.0-47.0) Mean Corpuscular Volume 96 fL (79-100) 95 fL (79-100) Mean Corpuscular Hemoglobin 33 pg (25-35) 33 pg (25-35) Mean Corpuscular Hemoglobin Concent 35 g/dL (31-37) 35 g/dL (31-37) Red Cell Distribution Width 13.5 % (11.5-14.5) 13.5 % (11.5-14.5) Platelet Count 256 x10^3/uL (140-400) 202 x10^3/uL (140-400) Neutrophils (%) (Auto) 70 % (31-73) 64 % (31-73) Lymphocytes (%) (Auto) 22 % (24-48) 28 % (24-48) Monocytes (%) (Auto) 7 % (0-9) 6 % (0-9) Eosinophils (%) (Auto) 1 % (0-3) 2 % (0-3) Basophils (%) (Auto) 1 % (0-3) 0 % (0-3) Neutrophils # (Auto) 8.5 x10^3uL (1.8-7.7) 5.2 x10^3uL (1.8-7.7) Lymphocytes # (Auto) 2.7 x10^3/uL (1.0-4.8) 2.2 x10^3/uL (1.0-4.8) Monocytes # (Auto) 0.9 x10^3/uL (0.0-1.1) 0.5 x10^3/uL (0.0-1.1) Eosinophils # (Auto) 0.1 x10^3/uL (0.0-0.7) 0.1 x10^3/uL (0.0-0.7) Basophils # (Auto) 0.1 x10^3/uL (0.0-0.2) 0.0 x10^3/uL (0.0-0.2) Sodium Level 134 mmol/L (136-145) 139 mmol/L (136-145) Potassium Level 4.4 mmol/L (3.5-5.1) 3.9 mmol/L (3.5-5.1) Chloride Level 102 mmol/L (98-107) 106 mmol/L (98-107) Carbon Dioxide Level 25 mmol/L (21-32) 27 mmol/L (21-32) Anion Gap 7 (6-14) 6 (6-14) Blood Urea Nitrogen 16 mg/dL (7-20) 13 mg/dL (7-20) Creatinine 0.7 mg/dL (0.6-1.0) 0.7 mg/dL (0.6-1.0) Estimated GFR (Cockcroft-Gault) 85.6 85.6 Glucose Level 100 mg/dL (70-99) 95 mg/dL (70-99) Calcium Level 9.1 mg/dL (8.5-10.1) 8.1 mg/dL (8.5-10.1) Total Bilirubin 0.7 mg/dL (0.2-1.0) 0.6 mg/dL (0.2-1.0) Direct Bilirubin 0.1 mg/dL (0.0-0.2) Aspartate Amino Transf (AST/SGOT) 14 U/L (15-37) 7 U/L (15-37) Alanine Aminotransferase (ALT/SGPT) 19 U/L (14-59) 14 U/L (14-59) Alkaline Phosphatase 55 U/L (46-116) 48 U/L (46-116) Total Protein 7.2 g/dL (6.4-8.2) 6.2 g/dL (6.4-8.2) Albumin 4.1 g/dL (3.4-5.0) 3.4 g/dL (3.4-5.0) Lipase 104 U/L (73-393) BUN/Creatinine Ratio 19 (6-20) Albumin/Globulin Ratio 1.2 (1.0-1.7) Hepatitis C IgG Antibody Reactive (Nonreactive) Brief Hospital Course Ms. Carcamo is a 57 old white female who is visiting from [facility], comes in because of acute onset christine epigastric pain, some nausea and diarrhea felt better after diarrhea. No fever, nontoxic-appearing. [place] imaging showed ileus versus mild partial SBO hence transferred here. LAbs ok, But here doing clinically better even on a diet. Cleared by GI to go home. Acute abdominal series pending, if that is negative will go home today with no change in meds Likely viral gastroenteritis that will run its course Consults performed GI Procedures performed none 2 Notes today Observation admission Discharge Information Condition at Discharge: Improved, Stable Disposition/Orders: D/C to Home Scheduled Alprazolam (Alprazolam) 1 Mg Tablet, 1 TAB PO BID, #60 (Reported) Entered as Reported by: SAVAGE SEGAL on 12/24/17 0059 Last Action: Continued on 12/24/17 1315 by RACHANA GUERRERO MD Dec 24, 2017 16:00
--- NOTE | 2017-12-24 16:31 | RAD ---
Acute abdominal series. 12/24/2017 9:03 AM Indication: SMALL BOWEL OBSTRUCTION Comparison Study: CT of the abdomen and pelvis, yesterday Discussion: There is no focal consolidation. There is no pleural effusion or pneumothorax. L The cardiomediastinal silhouette and pulmonary vasculature are within normal limits. No pneumoperitoneum is identified. Dilated loops of small bowel midcentral abdomen are seen. Findings raise concern for ongoing obstruction. No acute osseous changes are seen. Impression: 1. Persistent dilated loops of small bowel central abdomen raising concern for ongoing small bowel obstruction 2. No evidence of acute cardiopulmonary process Electronically signed by: Mark Balderas MD (12/24/2017 4:27 PM) [id number]
[2017-12-26 11:26] LABS: HCV ULTRA QUANT PCR HCV Not Detected IU/mL (.)
== END 2017-12-24 17:25 | disposition home or self-care (01) | DRG 392 ==
LOC: ER 17:55 → 4 NORTH 21:30
PROVIDERS: ADMIT Family Medicine; ATTEND Family Medicine
DX: A08.4 Viral intestinal infection, unspecified (principal); K56.690 Other partial intestinal obstruction; F41.9 Anxiety disorder, unspecified; I10 Essential (primary) hypertension; F17.210 Nicotine dependence, cigarettes, uncomplicated; M79.7 Fibromyalgia; Z90.710 Acquired absence of both cervix and uterus; Z88.5 Allergy status to narcotic agent; Z80.0 Family history of malignant neoplasm of digestive organs; Z80.8 Family history of malignant neoplasm of other organs or systems; Z82.49 Family history of ischemic heart disease and other diseases of the circulatory system
CPT/HCPCS: 36415; 74022; 74177; 80048; 80053; 80076; 81001; 83690; 85025; 86803; 87521; 96361; 96374; 96375; 96376; J2270; J2405; J7120; Q9967; 99285-25